=== PATIENT | female | born 1965 | race Caucasian/White ===

== ENCOUNTER → 2018-08-31 | Outpatient (CLI) | payer BC ==
[~2018-08-31] MED LIST: LEV125 PO; NOR5/325 PO
--- NOTE | 2018-09-01 10:17 | RADIOLOGY IMAGING REPORT ---
FACILITY: [facility] PATIENT NAME: CHERYL MENA : [id number] MR: [id number] V: [id number] EXAM DATE: [id number] ORDERING PHYSICIAN: WARNER WU TECHNOLOGIST: Melissa Enriquez PROCEDURE:BILATERAL DIGITAL SCREENING MAMMOGRAM WITH CAD ASSISTED INTERPRETATION & 3D TOMOSYNTHESIS COMPARISON:07/02/15, 07/20/11 INDICATIONS:SCREENING FINDINGS: The breasts have scattered fibroglandular parenchymal densities. There is a lobulated 1cm lateral retroareolar mass in the Left breast which warrants additional evaluation. This may be a cyst or cluster of cysts. There are no other mammographic findings concerning for potential malignancy. No significant change on the Right. DIAGNOSTIC CATEGORY 0--INCOMPLETE: NEED ADDITIONAL IMAGING EVALUATION. RECOMMENDATIONS: ULTRASOUND: LEFT BREAST. IMPRESSION: BIRADS 0: Incomplete, need additional imaging evaluation. Dictated by: Jorge Conn on 09/01/2018 at 9:26 Transcribed by: IAN on 09/01/2018 at 10:03 Approved by: Jorge Conn on 09/01/2018 at 10:16 [facility]
== END ==
LOC: MAMO 00:32
PROVIDERS: ATTEND Nurse Practitioner Family
DX: R92.2 Inconclusive mammogram (principal)
CPT/HCPCS: 77063; 77067

== ENCOUNTER → 2018-09-27 | Outpatient (CLI) | payer BC ==
--- NOTE | 2018-09-28 12:39 | RADIOLOGY IMAGING REPORT ---
FACILITY: [facility] PATIENT NAME: CHERYL MENA : [id number] MR: [id number] V: [id number] EXAM DATE: ORDERING PHYSICIAN: WARNER WU TECHNOLOGIST: Mechelle Post RT(R)(CT) PROCEDURE:US LEFT BREAST COMPARISON:Prior mammogram 08/31/18. INDICATIONS:FURTHER EVAL FINDINGS: There are numerous small cysts between the 1 & 2:30 position of the Left breast. In the 1 o'clock position of the Left breast 1cm from the nipple there is a 6.2 x 5.2 x 5.5mm well circumscribed parallel hypoechoic nodule with faint acoustic enhancement. In the 2 o'clock position of the Left breast 2cm from the nipple there is a 6 x 3 x 6.2mm well circumscribed ovoid hypoechoic parallel nodule with faint acoustic enhancement. In the 1 o'clock position of the Left breast 6cm from the nipple there is an 8.7 x 7.6 x 9.3mm ovoid parallel hypoechoic nodule. DIAGNOSTIC CATEGORY 3--PROBABLY BENIGN FINDING. RECOMMENDATIONS: SIX MONTH FOLLOW-UP ULTRASOUND: LEFT BREAST. IMPRESSION: BIRADS 3: Probably benign finding. There are multiple cysts from the 1 to 2:30 position of the Left breast in addition to a sub centimeter well circumscribed hypoechoic nodule as detailed above in the 1 & 2 o'clock positions. A 6 month follow-up Left breast Ultrasound is recommended to document stability unless clinical findings warrant more immediate attention. Dictated by: Renita Mariee M.D. on 09/28/2018 at 8:24 Transcribed by: ZAY on 09/28/2018 at 9:42 Approved by: Renita Mariee M.D. on 09/28/2018 at 12:38 [facility]
== END ==
LOC: MAMO 00:21
PROVIDERS: ATTEND Nurse Practitioner Family
DX: R92.2 Inconclusive mammogram (principal); N60.02 Solitary cyst of left breast